=== PATIENT | female | born 2000 | race Caucasian/White ===

== ENCOUNTER 2019-10-05 17:10 | Emergency (ER) | payer SELFPAY ==
[~2019-10-05] VITALS: Ht 160 cm; Wt 49.9 kg
[2019-10-05 17:17] VITALS: BP 126/83
--- NOTE | 2019-10-05 17:47 | NUR ---
Patient discharged to home in stable condition. Written and verbal after care instructions given. Patient verbalizes understanding of instruction.
== END 2019-10-05 17:47 | disposition home or self-care (01) ==
LOC: ER 17:12
DX: M25.552 Pain in left hip (principal); M54.5 Low back pain; V49.49XA Driver injured in collision with other motor vehicles in traffic accident, initial encounter; Y93.89 Activity, other specified; Y92.413 State road as the place of occurrence of the external cause; Y99.8 Other external cause status